=== PATIENT | male | born 1965 | race Caucasian/White ===

== ENCOUNTER 2016-05-06 17:39 | Inpatient (IN) | payer OTHER ==
[~2016-05-06] VITALS: Ht 180.3 cm; Wt 69.1 kg
[2016-05-06] VITALS (8 sets, daily range): BP systolic 88–119; RESP 10–27; TEMP 96.6; Ht 180.3 cm; Wt 69.1 kg
[2016-05-06] MEDS ORDERED: SODIUM CHLORIDE 0.9% 1,000 ML ONE ×2 (18:01→18:38)
[2016-05-06] MEDS ORDERED: GLUCAGON 1 MG VIAL IV ONE ×2 (19:35→20:25)
[2016-05-06] MEDS ORDERED: MAG HYDROX 30 ML UDC PO PRN (19:35)
[2016-05-06] MEDS ORDERED: BISACODYL EC 5 MG TAB PO PRN (19:35)
[2016-05-06] MEDS ORDERED: BISACODYL 10 MG SUPP RECTAL PRN (19:35)
[2016-05-06] MEDS ORDERED: ALU/MAG/SIM 30 ML UDC PO PRN (19:35)
[2016-05-06] MEDS ORDERED: SALINE FLUSH 10 ML FLUSH PRN (19:35)
[2016-05-06] MEDS: DUONEB INH SCH ×2 (20:20→21:47)
[2016-05-06] MEDS ORDERED: Flu Vaccine Quadrivalent 60 MCG/0.5 ML IM.VACC ONE (21:10)
[2016-05-06] MEDS: SODIUM CHLORIDE 0.9% 1,000 ML IV SCH (22:36)
[2016-05-06] MEDS: SALINE FLUSH 10 ML FLUSH SCH (22:37)
[2016-05-07] VITALS (20 sets, daily range): BP systolic 90–134; RESP 8–28; TEMP 96.6–98.5
[2016-05-07] MEDS: DUONEB INH SCH ×8 (02:18→22:22)
[2016-05-07] MEDS: SODIUM CHLORIDE 0.9% 1,000 ML IV SCH ×2 (04:35→18:41)
[2016-05-07] MEDS: SODIUM CHLORIDE 0.9% FLUSH BAG 500 ML IV SCH (04:37)
[2016-05-07] MEDS: SALINE FLUSH 10 ML FLUSH SCH ×2 (08:00→20:00)
[2016-05-07] MEDS ORDERED: BUDESONIDE INH SCH (12:55)
[2016-05-07] MEDS ORDERED: ALBUTEROL INH SCH (12:55)
[2016-05-07] MEDS ORDERED: IPRATROPIUM INH SCH (12:55)
[2016-05-07] MEDS ORDERED: FORMOTEROL FUMARATE INH SCH (12:55)
[2016-05-07] MEDS ORDERED: [UNRECOGNIZED DRUG - OTHER] INH SCH (12:55)
[2016-05-07] MEDS: NEB-BROVANA 15 MCG/2 ML INH SCH (18:00)
[2016-05-07] MEDS: NEB-BUDESONIDE 0.5 MG INH SCH (18:00)
[2016-05-07] MEDS: MONTELUKAST 10 MG TAB PO SCH (21:04)
[2016-05-07] MEDS: Atorvastatin 10 MG TAB PO SCH (21:04)
[2016-05-08] MEDS: DUONEB INH SCH ×10 (02:12→23:33)
[2016-05-08 03:20] VITALS: BP_SYST 117; RESP 18; TEMP 97.6
[2016-05-08] MEDS: SODIUM CHLORIDE 0.9% 1,000 ML IV SCH (03:45)
[2016-05-08] MEDS: SODIUM CHLORIDE 0.9% FLUSH BAG 500 ML IV SCH (05:30)
[2016-05-08] MEDS: NEB-BROVANA 15 MCG/2 ML INH SCH ×2 (06:36→18:27)
[2016-05-08] MEDS: NEB-BUDESONIDE 0.5 MG INH SCH ×2 (06:39→18:27)
[2016-05-08 07:26] VITALS: BP_SYST 122; RESP 18; TEMP 98.3
[2016-05-08] MEDS: SALINE FLUSH 10 ML FLUSH SCH ×2 (08:00→21:43)
[2016-05-08 11:19] VITALS: BP_SYST 130; RESP 18; TEMP 98.1
[2016-05-08] MEDS: METHYLPRED SOD SUCC 125 MG/2 ML VIAL IV SCH ×2 (15:05→18:00)
[2016-05-08 15:15] VITALS: BP_SYST 128; RESP 18; TEMP 98.2
[2016-05-08 20:01] VITALS: BP_SYST 127; RESP 18; TEMP 97.4
[2016-05-08] MEDS: MONTELUKAST 10 MG TAB PO SCH (21:43)
[2016-05-08] MEDS: Atorvastatin 10 MG TAB PO SCH (21:43)
[2016-05-09] VITALS (7 sets, daily range): BP systolic 104–133; RESP 16–20; TEMP 97.3–98.6
[2016-05-09] MEDS: METHYLPRED SOD SUCC 125 MG/2 ML VIAL IV SCH ×3 (01:53→11:34)
[2016-05-09] MEDS: SODIUM CHLORIDE 0.9% FLUSH BAG 500 ML IV SCH (06:00)
[2016-05-09] MEDS: NEB-BROVANA 15 MCG/2 ML INH SCH ×2 (06:27→18:31)
[2016-05-09] MEDS: DUONEB INH SCH ×4 (06:27→23:49)
[2016-05-09] MEDS: NEB-BUDESONIDE 0.5 MG INH SCH ×2 (06:27→18:31)
[2016-05-09] MEDS: SALINE FLUSH 10 ML FLUSH SCH ×2 (11:34→20:50)
[2016-05-09] MEDS: Carvedilol 6.25 MG TAB PO SCH (15:40)
[2016-05-09] MEDS: VENLAFAXINE XR 75 MG CAP PO SCH (15:40)
[2016-05-09] MEDS ORDERED: ACETAMINOPHEN 325 MG TAB PO PRN (20:05)
[2016-05-09] MEDS: MONTELUKAST 10 MG TAB PO SCH (20:49)
[2016-05-09] MEDS: Atorvastatin 10 MG TAB PO SCH (20:49)
[2016-05-10 04:26] VITALS: BP_SYST 122; RESP 16; TEMP 97.9
[2016-05-10] MEDS: SODIUM CHLORIDE 0.9% FLUSH BAG 500 ML IV SCH (05:57)
[2016-05-10] MEDS: NEB-BUDESONIDE 0.5 MG INH SCH (06:36)
[2016-05-10] MEDS: DUONEB INH SCH ×2 (06:36→11:31)
[2016-05-10] MEDS: NEB-BROVANA 15 MCG/2 ML INH SCH (06:36)
[2016-05-10 06:59] VITALS: BP_SYST 129; RESP 18; TEMP 97.6
[2016-05-10] MEDS: VENLAFAXINE XR 75 MG CAP PO SCH (08:38)
[2016-05-10] MEDS: SALINE FLUSH 10 ML FLUSH SCH (08:38)
[2016-05-10] MEDS: Carvedilol 6.25 MG TAB PO SCH (08:38)
[2016-05-10] MEDS ORDERED: PREDNISONE 20 MG TAB PO SCH (09:00)
[2016-05-10] MEDS ORDERED: VENLAFAXINE XR 37.5 MG CAP PO SCH (09:00)
[2016-05-10 11:18] VITALS: BP_SYST 124; RESP 16; TEMP 98.1
[2016-05-10 14:53] VITALS: BP_SYST 131; TEMP 97.8
[2016-05-10 15:30] VITALS: BP_SYST 124; RESP 16; TEMP 98.1
== END 2016-05-10 17:00 | disposition home health service (06) | DRG 918 ==
LOC: ENRESERVTM → ENRESERVDT → CANRESERV → ER 17:39 → EMR 19:33 → ENPENDDIS 19:33 → CCU 20:44 → 4THE 05-07 18:26
PROVIDERS: ADMIT Internal Medicine; ATTEND Internal Medicine
DX: T42.4X2A Poisoning by benzodiazepines, intentional self-harm, initial encounter (principal); I95.2 Hypotension due to drugs; F32.2 Major depressive disorder, single episode, severe without psychotic features; I11.0 Hypertensive heart disease with heart failure; I50.9 Heart failure, unspecified; J44.1 Chronic obstructive pulmonary disease with (acute) exacerbation; T44.7X2A Poisoning by beta-adrenoreceptor antagonists, intentional self-harm, initial encounter; R73.9 Hyperglycemia, unspecified; F41.9 Anxiety disorder, unspecified; E78.5 Hyperlipidemia, unspecified; R00.0 Tachycardia, unspecified
CPT/HCPCS: 36415; 80048; 80053; 80307; 80320; 80329; 81003; 82553; 82947; 83880; 84484; 85025; 93005; 94640; 94799; 96361; 96374; 96376; 99223; 99232; 99233; 99238